=== PATIENT | female | born 2000 | race Caucasian/White ===

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

== ENCOUNTER 2020-01-28 23:31 | Emergency (ER) | payer OTHER ==
[2020-01-28] MEDS ORDERED: ALBUTEROL NEBULIZED 2.5 MG/3 ML INHALATION STA (23:49)
[2020-01-28] MEDS ORDERED: methylPREDNISolone SOD SUCCI 125 MG/2 ML VIAL IV STA (23:49)
[2020-01-28] MEDS ORDERED: MAGNESIUM SULFATE-D5W PMX 1 GM in DEXTROSE/WATER 1 100ML.BAG IVPB STA (23:49)
[2020-01-28] MEDS ORDERED: IPRATROPIUM 0.5 MG/2.5 ML NEBU INHALATION STA (23:49)
[2020-01-28] MEDS ORDERED: SODIUM CHLORIDE 0.9% 1,000 ML IV STA (23:49)
--- NOTE | 2020-01-28 23:51 | ED ---
SOB HPI - General Chief Complaint: Shortness of Breath Stated Complaint: Asthma attack Time Seen by Provider: 01/28/20 23:49 Source: patient, RN notes reviewed, old records reviewed Mode of arrival: wheelchair Limitations: no limitations - History of Present Illness Initial Comments: This is a 19-year-old female DF for evaluation patient Dese for evaluation of shortness of breath history of asthma patient laughing fit tonight became very short of breath she has have a rescue inhaler but that is not doing work work when he help. Patient believes worse who presents DF for evaluation. No fevers no recent travel show sick contacts, symptom worse sudden onset MD Complaint: shortness of breath, cough, "asthma attack" -: minutes(s) Severity: moderate Severity scale (1-10): 4 Consistency: constant Improves With: nothing Worsens With: exertion, coughing, other (Laughing) Known History Of: asthma Context: recent URI Associated Symptoms: cough Treatments Prior to Arrival: none - Related Data Previous Rx's Medication Instructions Recorded Ibuprofen [Motrin] 600 mg PO Q8HR PRN #20 tab 10/04/13 Albuterol Sulfate [Proair Hfa] 1 - 2 puff INHALATION Q4HR PRN #1 10/14/19 inhaler methylPREDNISolone [Medrol Dose 4 mg PO DIRECTED #1 pack 10/14/19 Pack] Allergies Allergy/AdvReac Type Severity Reaction Status Date / Time No Known Allergies Allergy Verified 01/28/20 23:42 Review of Systems ROS Statement: Those systems with pertinent positive or pertinent negative responses have been documented in the HPI. ROS Other: All systems not noted in ROS Statement are negative. Past Medical History Past Medical History: Asthma History of Any Multi-Drug Resistant Organisms: None Reported Past Surgical History: No Surgical Hx Reported Past Psychological History: No Psychological Hx Reported Smoking Status: Never smoker Past Alcohol Use History: None Reported Past Drug Use History: None Reported General Exam Limitations: no limitations General appearance: alert, in no apparent distress, anxious Head exam: Present: atraumatic, normocephalic, normal inspection Eye exam: Present: normal appearance, PERRL, EOMI. Absent: scleral icterus, conjunctival injection, periorbital swelling ENT exam: Present: normal exam, mucous membranes moist Neck exam: Present: normal inspection. Absent: tenderness, meningismus, lymphadenopathy Respiratory exam: Present: normal lung sounds bilaterally, wheezes, accessory muscle use, decreased breath sounds, prolonged expiratory. Absent: respiratory distress, rales, rhonchi, stridor Cardiovascular Exam: Present: normal rhythm, tachycardia, normal heart sounds. Absent: systolic murmur, diastolic murmur, rubs, gallop, clicks GI/Abdominal exam: Present: soft, normal bowel sounds. Absent: distended, tenderness, guarding, rebound, rigid Extremities exam: Present: normal inspection, full ROM, normal capillary refill. Absent: tenderness, pedal edema, joint swelling, calf tenderness Back exam: Present: normal inspection Neurological exam: Present: alert, oriented X3, CN II-XII intact Psychiatric exam: Present: normal affect, normal mood Skin exam: Present: warm, dry, intact, normal color. Absent: rash Course Vital Signs 01/28/20 01/29/20 01/29/20 23:38 00:04 00:10 Temperature 98.2 F Pulse Rate 124 H 112 H 115 H Respiratory 18 24 Rate Blood Pressure 132/88 113/87 O2 Sat by Pulse 98 98 Oximetry 01/29/20 01/29/20 01/29/20 00:35 00:50 00:52 Temperature Pulse Rate 110 H 122 H 120 H Respiratory 18 Rate Blood Pressure 119/74 O2 Sat by Pulse 98 Oximetry - Reevaluation(s) Reevaluation #1: 01/29/20 01:40 Medical record is reviewed Reevaluation #2: 01/29/20 01:40 This point patient does have improvement in symptoms Reevaluation #3: 01/29/20 01:46 Patient given repeated breathing treatment again symptoms are improving, given hydration and patient feels good for discharge home Medical Decision Making - Medical Decision Making 19 female to the ER for evaluation of cough congestion laughing fit causing asthma exacerbation. Dramatically improved here in the ER patient feels good for discharge home she does have rest and will do that 3 times a day and discharged home with refill and steroids - Lab Data Result diagrams: 01/29/20 00:16 01/29/20 00:16 Lab Results 01/29/20 01/29/20 01/29/20 Range/Units 00:16 00:16 00:16 WBC 14.6 H (4.0-11.0) k/uL RBC 5.40 (3.80-5.40) m/uL Hgb 14.6 (11.4-16.0) gm/dL Hct 44.9 (34.0-46.0) % MCV 83.2 (80.0-100.0) fL MCH 27.0 (25.0-35.0) pg MCHC 32.5 (31.0-37.0) g/dL RDW 11.8 (11.5-15.5) % Plt Count 368 (150-450) k/uL Neutrophils % 55 % Lymphocytes % 29 % Monocytes % 6 % Eosinophils % 8 % Basophils % 1 % Neutrophils # 7.9 H (1.3-7.7) k/uL Lymphocytes # 4.3 (1.0-4.8) k/uL Monocytes # 0.9 (0-1.0) k/uL Eosinophils # 1.1 H (0-0.7) k/uL Basophils # 0.1 (0-0.2) k/uL Sodium 139 (137-145) mmol/L Potassium 4.1 (3.5-5.1) mmol/L Chloride 105 (98-107) mmol/L Carbon Dioxide 26 (22-30) mmol/L Anion Gap 8 mmol/L BUN 13 (7-17) mg/dL Creatinine 0.75 (0.52-1.04) mg/dL Est GFR (CKD-EPI)AfAm >90 (>60 ml/min/1.73 sqM) Est GFR (CKD-EPI)NonAf >90 (>60 ml/min/1.73 sqM) Glucose 103 H (74-99) mg/dL Plasma Lactic Acid Josue 1.1 (0.7-2.0) mmol/L Calcium 9.8 (8.4-10.2) mg/dL Magnesium 1.9 (1.6-2.3) mg/dL Total Bilirubin 0.4 (0.2-1.3) mg/dL AST 22 (14-36) U/L ALT 16 (4-34) U/L Alkaline Phosphatase 83 (38-126) U/L Total Protein 8.2 (6.3-8.2) g/dL Albumin 4.9 (3.5-5.0) g/dL - EKG Data -: EKG Interpreted by Me (EKG is sinus tach 114 CT 134 QRS 82 QTC 452) - Radiology Data Radiology results: report reviewed (Chest x-rays negative for acute disease), image reviewed Disposition Clinical Impression: Asthma with acute exacerbation Disposition: HOME SELF-CARE Condition: Good Instructions (If sedation given, give patient instructions): Asthma (ED), Bronchospasm (ED) Is patient prescribed a controlled substance at d/c from ED?: No Referrals: None,Stated [Primary Care Provider] - 1-2 days
[2020-01-29 00:34] LABS: Basophils # (A) 0.1 k/uL (0-0.2); Basophils % (A) 1 %; Eosinophils # (A) 1.1 k/uL (0-0.7); Eosinophils % (A) 8 %; HCT 44.9 % (34.0-46.0); HGB 14.6 gm/dL (11.4-16.0); Lymphocytes # (A) 4.3 k/uL (1.0-4.8); Lymphocytes % (A) 29 %; MCHC 32.5 g/dL (31.0-37.0); MCV 83.2 fL (80.0-100.0); Mean Platelet Volume 6.4; Monocytes # (A) 0.9 k/uL (0-1.0); Monocytes % (A) 6 %; Neutrophils # (A) 7.9 k/uL (1.3-7.7); Neutrophils % (A) 55 %; Platelet Count 368 k/uL (150-450); RDW 11.8 % (11.5-15.5); WBC 14.6 k/uL (4.0-11.0)
[2020-01-29 00:52] LABS: ALT 16 U/L (4-34); AST 22 U/L (14-36); African American GFR (CKD) >90 (>60 ml/min/1.73 sqM); Albumin 4.9 g/dL (3.5-5.0); Alkaline Phosphatase 83 U/L (38-126); Anion Gap 8 mmol/L; Blood Urea Nitrogen 13 mg/dL (7-17); Calcium 9.8 mg/dL (8.4-10.2); Carbon Dioxide 26 mmol/L (22-30); Chloride 105 mmol/L (98-107); Glucose 103 mg/dL (74-99); Magnesium 1.9 mg/dL (1.6-2.3); Non-African American GFR(CKD) >90 (>60 ml/min/1.73 sqM); Potassium 4.1 mmol/L (3.5-5.1); Sodium 139 mmol/L (137-145); Total Bilirubin 0.4 mg/dL (0.2-1.3); Total Protein 8.2 g/dL (6.3-8.2)
[2020-01-29] MEDS ORDERED: IPRATROPIUM-ALBUTEROL 3 ML NEB INHALATION STA (01:38)
[2020-01-29] MEDS ORDERED: SODIUM CHLORIDE 0.9% 1,000 ML IV STA (01:38)
--- NOTE | 2020-01-29 01:42 | XR ---
EXAMINATION TYPE: XR chest 2V DATE OF EXAM: 01/29/2020 COMPARISON: 10/13/2019 HISTORY: Short of breath TECHNIQUE: 2 views FINDINGS: Heart is normal. Lungs are clear. Costophrenic angles are clear. There are no hilar masses. Bony thorax is intact. IMPRESSION: Normal chest. Normal heart. No change.
[2020-01-29 03:30] VITALS: BP 111/78
[2020-01-29 05:05] VITALS: PULSE 125; RESP 16; TEMP 98.7
== END 2020-01-29 04:55 | disposition home or self-care (01) ==
LOC: EC 23:31
DX: J45.901 Unspecified asthma with (acute) exacerbation (principal)
CPT/HCPCS: 36415; 94640; 94644; 93005; 80053; 83605; 83735; 85025; 71046; 99285; 96365; 96366 ×2; 96375; 96361; J2930; J3475

== ENCOUNTER 2020-02-18 20:27 | Emergency (ER) | payer OTHER ==
[2020-02-18 20:37] VITALS: TEMP 98
[2020-02-18] MEDS ORDERED: IPRATROPIUM-ALBUTEROL 3 ML NEB INHALATION STA ×2 (20:47→22:05)
[2020-02-18] MEDS ORDERED: methylPREDNISolone SOD SUCCI 125 MG/2 ML VIAL IV STA (20:47)
--- NOTE | 2020-02-18 21:18 | XR ---
EXAMINATION TYPE: XR chest 2V DATE OF EXAM: 02/18/2020 COMPARISON: 01/29/2020 HISTORY: Cough TECHNIQUE: 2 views FINDINGS: Heart and mediastinum are normal. Lungs are clear. Diaphragm is normal. Bony thorax appears normal. IMPRESSION: Normal chest. No change.
--- NOTE | 2020-02-18 21:20 | ED ---
SOB HPI - General Chief Complaint: Shortness of Breath Stated Complaint: Asthma Time Seen by Provider: 02/18/20 20:39 Source: patient Mode of arrival: ambulatory Limitations: no limitations - History of Present Illness Initial Comments: Patient is a 19-year-old female presenting to emergency Department with complaints of shortness of breath, wheezing that has been increasing over the past 2 days. Patient does have a history of asthma. Patient states she does not know why this was triggered. She's been trying her at-home inhalers, however does not seem to be helping. Patient states been having trouble sleeping over the last 2 nights secondary to her wheezing. She denies any fever, cough, chest pain. She denies any nausea or vomiting. She denies any nasal drainage, headache. She has no further complaints at this time. Patient is afebrile on arrival, pulse is 135, respiratory rate of 28, blood pressure 145/78, 96% on room air. - Related Data Previous Rx's Medication Instructions Recorded Ibuprofen [Motrin] 600 mg PO Q8HR PRN #20 tab 10/04/13 Albuterol Sulfate [Proair Hfa] 1 - 2 puff INHALATION Q4HR PRN #1 10/14/19 inhaler methylPREDNISolone [Medrol Dose 4 mg PO DIRECTED #1 pack 10/14/19 Pack] Albuterol Sulfate [Proair Hfa] 1 - 2 puff INHALATION Q4H PRN #1 01/29/20 inhaler predniSONE 50 mg PO DAILY #5 tab 01/29/20 methylPREDNISolone [Medrol Dose 4 mg PO DIRECTED #1 pack 02/18/20 Pack] Allergies Allergy/AdvReac Type Severity Reaction Status Date / Time No Known Allergies Allergy Verified 02/18/20 20:37 Review of Systems ROS Statement: Those systems with pertinent positive or pertinent negative responses have been documented in the HPI. ROS Other: All systems not noted in ROS Statement are negative. Past Medical History Past Medical History: Asthma History of Any Multi-Drug Resistant Organisms: None Reported Past Surgical History: No Surgical Hx Reported Past Psychological History: No Psychological Hx Reported Smoking Status: Never smoker Past Alcohol Use History: None Reported Past Drug Use History: None Reported General Exam - General Exam Comments Initial Comments: GENERAL: Patient is well-developed and well-nourished. Patient is nontoxic and in mild distress. HEAD: Atraumatic, normocephalic. EYES: Pupils equal round and reactive to light, extraocular movements intact, sclera anicteric, conjunctiva are normal. Eyelids were unremarkable. ENT: TMs normal, nares patent, oropharynx clear without exudates. Moist mucous membranes. NECK: Normal range of motion, supple without lymphadenopathy or JVD. LUNGS: Patient is working to breathe, she has significant wheezes throughout lung fie lds, very constricted. HEART: Tachycardia rate and rhythm without murmurs, rubs or gallops. ABDOMEN: Soft, nontender, normoactive bowel sounds. No guarding, no rebound. No masses appreciated. : Deferred MUSCULOSKELETAL: Normal extremities with adequate strength and normal range of motion, no pitting or edema. No clubbing or cyanosis. NEUROLOGICAL: Patient is alert and oriented x 3. Motor and sensory are also intact. Cranial nerves II through XII grossly intact. Symmetrical smile. Normal speech, normal gait. PSYCH: Normal mood, normal affect. SKIN: Warm, Dry, normal turgor, no rashes or lesions noted. Limitations: no limitations Course Vital Signs 02/18/20 02/18/20 02/18/20 20:33 20:45 20:52 Temperature 98 F Pulse Rate 135 H 124 H Respiratory 28 H 26 H Rate Blood Pressure 145/78 O2 Sat by Pulse 96 Oximetry 02/18/20 02/18/20 02/18/20 21:00 21:50 22:23 Temperature Pulse Rate 120 H 113 H 117 H Respiratory 20 Rate Blood Pressure 134/75 O2 Sat by Pulse 96 Oximetry 02/18/20 22:30 Temperature Pulse Rate 117 H Respiratory Rate Blood Pressure O2 Sat by Pulse Oximetry Medical Decision Making - Medical Decision Making Patient is a 19-year-old female, with history of asthma presenting with shortness of breath has been increasing over the past 2 days. She states she's been trying her inhaler at home without improvement. She denies any fevers. He is afebrile here. Patient's initial exam was very constricted, scattered wheezes throughout. Patient received a total of 2 breathing treatments, she has much more air movement, very little wheezes at this time. Also gave her IV steroids. She is resting comfortably. She states she feels significant improvement in her symptoms. Her vital signs have returned to normal. She is stable for discharge. I will continue patient on steroid Dosepak to start tomorrow. Did recommend dating follow-up with PCP and recommended asking for an at home nebulizer machine. Strict return parameters were discussed with the patient and her mother and they both verbalized understanding. Case discussed with Dr. Herrera. Disposition Clinical Impression: Asthma with acute exacerbation Disposition: HOME SELF-CARE Instructions (If sedation given, give patient instructions): Asthma (ED) Additional Instructions: Please return to the Emergency Department if symptoms worsen or any other concerns. Start steroid Dosepak tomorrow and take as directed. Follow up with PCP in 1-3 days, recommend asking for an at home nebulizer machine. Prescriptions: methylPREDNISolone [Medrol Dose Pack] 4 mg PO DIRECTED #1 pack Is patient prescribed a controlled substance at d/c from ED?: No Referrals: None,Stated [Primary Care Provider] - 1-2 days Chanel Fisher MD [STAFF PHYSICIAN] - 1-2 days
[2020-02-18 21:51] VITALS: RESP 20
[2020-02-18 21:52] VITALS: BP 134/75
[2020-02-18 22:25] VITALS: PULSE 117
== END 2020-02-18 22:55 | disposition home or self-care (01) ==
LOC: EC 20:27
DX: J45.901 Unspecified asthma with (acute) exacerbation (principal)
CPT/HCPCS: 94640 ×2; 71046; 99285; 96374; J2930

== ENCOUNTER 2020-11-28 04:13 | Emergency (ER) | payer OTHER ==
[2020-11-28 04:17] VITALS: TEMP 98.5
[2020-11-28] MEDS ORDERED: IPRATROPIUM 0.5 MG/2.5 ML NEBU INHALATION STA (04:23)
[2020-11-28] MEDS ORDERED: SODIUM CHLORIDE 0.9% 1,000 ML IV STA ×2 (04:23)
[2020-11-28] MEDS ORDERED: methylPREDNISolone SOD SUCCI 125 MG/2 ML VIAL IV STA (04:23)
[2020-11-28] MEDS ORDERED: ALBUTEROL NEBULIZED 2.5 MG/3 ML INHALATION STA (04:23)
[2020-11-28] MEDS ORDERED: SODIUM CHLORIDE 0.9% 500 ML 500 ML IV STA ×2 (04:23→06:01)
[2020-11-28] MEDS ORDERED: MAGNESIUM SULFATE-D5W PMX 1 GM in DEXTROSE/WATER 1 100ML.BAG IVPB STA (04:23)
--- NOTE | 2020-11-28 04:30 | ED ---
SOB HPI - General Chief Complaint: Shortness of Breath Stated Complaint: SOB Time Seen by Provider: 11/28/20 04:22 Source: patient, RN notes reviewed, old records reviewed Mode of arrival: ambulatory Limitations: no limitations - History of Present Illness Initial Comments: This is a 20-year-old female D to the ER for evaluation patient presents today f or evaluation regards to severe shortness of breath with severe asthma exacerbation history of asthma exacerbation. Denying chest pain. No exposures. Symptoms worsening throughout the day. Patient is without fever. No recent travel history or sick contacts MD Complaint: shortness of breath, cough -: hour(s) Severity: moderate, severe Severity scale (1-10): 10 Quality: aching Consistency: constant Improves With: nothing Worsens With: exertion, movement, coughing Known History Of: COPD Context: recent URI, anxiety, recent illness Associated Symptoms: denies other symptoms - Related Data Previous Rx's Medication Instructions Recorded Ibuprofen [Motrin] 600 mg PO Q8HR PRN #20 tab 10/04/13 Albuterol Sulfate [Proair Hfa] 1 - 2 puff INHALATION Q4HR PRN #1 10/14/19 inhaler methylPREDNISolone [Medrol Dose 4 mg PO DIRECTED #1 pack 10/14/19 Pack] Albuterol Sulfate [Proair Hfa] 1 - 2 puff INHALATION Q4H PRN #1 01/29/20 inhaler predniSONE 50 mg PO DAILY #5 tab 01/29/20 methylPREDNISolone [Medrol Dose 4 mg PO DIRECTED #1 pack 02/18/20 Pack] Albuterol Nebulized [Ventolin 2.5 mg INHALATION Q4H PRN #25 nebu 11/28/20 Nebulized] Albuterol Sulfate [Proair Hfa] 1 - 2 puff INHALATION Q4H PRN #1 11/28/20 inhaler predniSONE 50 mg PO DAILY #5 tab 11/28/20 Allergies Allergy/AdvReac Type Severity Reaction Status Date / Time No Known Allergies Allergy Verified 11/28/20 04:17 Review of Systems ROS Statement: Those systems with pertinent positive or pertinent negative responses have been documented in the HPI. ROS Other: All systems not noted in ROS Statement are negative. Past Medical History Past Medical History: Asthma History of Any Multi-Drug Resistant Organisms: None Reported Past Surgical History: No Surgical Hx Reported Past Psychological History: No Psychological Hx Reported Smoking Status: Never smoker Past Alcohol Use History: None Reported Past Drug Use History: None Reported General Exam Limitations: no limitations General appearance: alert, in no apparent distress, anxious Head exam: Present: atraumatic, normocephalic, normal inspection Eye exam: Present: normal appearance, PERRL, EOMI. Absent: scleral icterus, conjunctival injection, periorbital swelling ENT exam: Present: normal exam, mucous membranes moist Neck exam: Present: normal inspection. Absent: tenderness, meningismus, lymphadenopathy Respiratory exam: Present: respiratory distress, wheezes, accessory muscle use, decreased breath sounds, prolonged expiratory. Absent: rales, rhonchi, stridor Cardiovascular Exam: Present: regular rate, normal rhythm, tachycardia, normal heart sounds. Absent: systolic murmur, diastolic murmur, rubs, gallop, clicks GI/Abdominal exam: Present: soft, normal bowel sounds. Absent: distended, tenderness, guarding, rebound, rigid Extremities exam: Present: normal inspection, full ROM, normal capillary refill. Absent: tenderness, pedal edema, joint swelling, calf tenderness Back exam: Present: normal inspection Neurological exam: Present: alert, oriented X3, CN II-XII intact Psychiatric exam: Present: normal affect, normal mood Skin exam: Present: warm, dry, intact, normal color. Absent: rash Course Vital Signs 11/28/20 11/28/20 11/28/20 04:13 04:25 04:50 Temperature 98.5 F Pulse Rate 131 H 112 H 140 H Respiratory 36 H 26 H 21 Rate Blood Pressure 138/89 O2 Sat by Pulse 96 Oximetry - Reevaluation(s) Reevaluation #1: 11/28/20 06:31 Medical record is reviewed Reevaluation #2: 11/28/20 06:31 Mild improvement in symptoms here in the ER Reevaluation #3: 11/28/20 06:32 Patient is no significant improvement of symptoms after second breathing treatment Reevaluation #4: 11/28/20 06:32 patient informed results and questions answered she feels good for discharge Medical Decision Making - Medical Decision Making Review female severe asthma exacerbation. Symptoms are markedly improved here in the ER, patient states she will return if symptoms worsen, she is in no acute distress and can be discharged home - Lab Data Result diagrams: 11/28/20 04:37 11/28/20 04:37 Lab Results 11/28/20 11/28/20 Range/Units 04:37 04:37 WBC 11.7 H (4.0-11.0) k/uL RBC 4.98 (3.80-5.40) m/uL Hgb 13.5 (11.4-16.0) gm/dL Hct 42.2 (34.0-46.0) % MCV 84.7 (80.0-100.0) fL MCH 27.2 (25.0-35.0) pg MCHC 32.1 (31.0-37.0) g/dL RDW 12.0 (11.5-15.5) % Plt Count 273 (150-450) k/uL MPV 7.0 Neutrophils % 59 % Lymphocytes % 24 % Monocytes % 5 % Eosinophils % 9 % Basophils % 1 % Neutrophils # 6.9 (1.3-7.7) k/uL Lymphocytes # 2.8 (1.0-4.8) k/uL Monocytes # 0.6 (0-1.0) k/uL Eosinophils # 1.1 H (0-0.7) k/uL Basophils # 0.1 (0-0.2) k/uL Sodium 141 (137-145) mmol/L Potassium 3.4 L (3.5-5.1) mmol/L Chloride 104 (98-107) mmol/L Carbon Dioxide 27 (22-30) mmol/L Anion Gap 10 mmol/L BUN 13 (7-17) mg/dL Creatinine 0.70 (0.52-1.04) mg/dL Est GFR (CKD-EPI)AfAm >90 (>60 ml/min/1.73 sqM) Est GFR (CKD-EPI)NonAf >90 (>60 ml/min/1.73 sqM) Glucose 125 H (74-99) mg/dL Calcium 9.5 (8.4-10.2) mg/dL Magnesium 1.9 (1.6-2.3) mg/dL Total Bilirubin 0.4 (0.2-1.3) mg/dL AST 24 (14-36) U/L ALT 17 (4-34) U/L Alkaline Phosphatase 74 (38-126) U/L Total Protein 7.4 (6.3-8.2) g/dL Albumin 4.6 (3.5-5.0) g/dL Disposition Clinical Impression: Asthma with acute exacerbation Disposition: HOME SELF-CARE Condition: Good Instructions (If sedation given, give patient instructions): Asthma (ED) Prescriptions: predniSONE 50 mg PO DAILY #5 tab Albuterol Sulfate [Proair Hfa] 1 - 2 puff INHALATION Q4H PRN #1 inhaler PRN Reason: Shortness Of Breath Albuterol Nebulized [Ventolin Nebulized] 2.5 mg INHALATION Q4H PRN #25 nebu PRN Reason: Shortness Of Breath Is patient prescribed a controlled substance at d/c from ED?: No Referrals: None,Stated [REFERRING] - 1-2 days
[2020-11-28 05:45] LABS: Basophils # (A) 0.1 k/uL (0-0.2); Basophils % (A) 1 %; Eosinophils # (A) 1.1 k/uL (0-0.7); Eosinophils % (A) 9 %; HCT 42.2 % (34.0-46.0); HGB 13.5 gm/dL (11.4-16.0); Lymphocytes # (A) 2.8 k/uL (1.0-4.8); Lymphocytes % (A) 24 %; MCH 27.2 pg (25.0-35.0); MCHC 32.1 g/dL (31.0-37.0); MCV 84.7 fL (80.0-100.0); Monocytes # (A) 0.6 k/uL (0-1.0); Monocytes % (A) 5 %; Neutrophils # (A) 6.9 k/uL (1.3-7.7); Neutrophils % (A) 59 %; Platelet Count 273 k/uL (150-450); RBC 4.98 m/uL (3.80-5.40); WBC 11.7 k/uL (4.0-11.0)
[2020-11-28 05:52] LABS: ALT 17 U/L (4-34); AST 24 U/L (14-36); African American GFR (CKD) >90 (>60 ml/min/1.73 sqM); Albumin 4.6 g/dL (3.5-5.0); Alkaline Phosphatase 74 U/L (38-126); Anion Gap 10 mmol/L; Blood Urea Nitrogen 13 mg/dL (7-17); Calcium 9.5 mg/dL (8.4-10.2); Carbon Dioxide 27 mmol/L (22-30); Chloride 104 mmol/L (98-107); Glucose 125 mg/dL (74-99); Magnesium 1.9 mg/dL (1.6-2.3); Non-African American GFR(CKD) >90 (>60 ml/min/1.73 sqM); Potassium 3.4 mmol/L (3.5-5.1); Sodium 141 mmol/L (137-145); Total Bilirubin 0.4 mg/dL (0.2-1.3); Total Protein 7.4 g/dL (6.3-8.2)
[2020-11-28] MEDS ORDERED: MAGNESIUM OXIDE 400 MG TAB PO STA (06:01)
[2020-11-28] MEDS ORDERED: IPRATROPIUM-ALBUTEROL 3 ML NEB INHALATION STA (06:01)
[2020-11-28] MEDS ORDERED: POTASSIUM BICARBONATE/CIT AC 20 MEQ TABLET.EFF PO ONE (06:01)
[2020-11-28 08:06] VITALS: BP 105/64; RESP 18
[2020-11-28 08:43] VITALS: PULSE 124
== END 2020-11-28 10:07 | disposition home or self-care (01) ==
LOC: EC 04:13
DX: J45.901 Unspecified asthma with (acute) exacerbation (principal)
CPT/HCPCS: 36415; 94640 ×2; 80053; 83735; 85025; 99285; 96365; 96366; 96375; J2930; J3475

== ENCOUNTER → 2020-11-29 | Outpatient (CLI) | payer OTHER ==
--- NOTE | 2020-11-30 07:49 | XR ---
EXAMINATION TYPE: XR chest 2V DATE OF EXAM: 11/29/2020 COMPARISON: 02/18/2020 HISTORY: Chest pain TECHNIQUE: Frontal and lateral views of the chest are obtained. FINDINGS: There is no focal air space opacity. No evidence for pneumothorax. No pleural effusion. The cardiac silhouette size is within normal limits. The osseous structures are grossly intact. IMPRESSION: 1. No acute cardiopulmonary process.
== END | disposition home or self-care (01) ==
LOC: RADXRMAIN 16:17
PROVIDERS: ATTEND Family Medicine
DX: R07.9 Chest pain, unspecified (principal)
CPT/HCPCS: 71046